=== PATIENT | male | born 2000 | race African-American/Black ===

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

== ENCOUNTER 2020-05-07 18:11 | Emergency (ER) | payer SELFPAY ==
[~2020-05-07] VITALS: Ht 180.3 cm; Wt 59.0 kg
[~2020-05-07 18:11] MED LIST changes: +IBUPROFEN600 M1 ORAL
[2020-05-07 18:25] VITALS: BP 113/65
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
[2020-05-07] MEDS ORDERED: TYLENOL EXTRA500 MG ORAL (18:29)
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
[2020-05-07 18:37] VITALS: BP 117/68
--- NOTE | 2020-05-07 18:38 | NUR ---
ER DISCHARGE NOTE: Patient is cleared to be discharged per ERMD, pt is aox4, on room air, with stable vital signs. pt was given dc and prescription instructions, pt was able to verbalize understanding, pt id band removed. pt is able to ambulate with steady gait. pt took all belongings.
== END 2020-05-07 19:00 | disposition home or self-care (01) ==
LOC: EMR 18:51
DX: S70.12XA Contusion of left thigh, initial encounter (principal); V43.62XA Car passenger injured in collision with other type car in traffic accident, initial encounter; Y92.410 Unspecified street and highway as the place of occurrence of the external cause
CPT/HCPCS: 99282